=== PATIENT | female | born 1940 | race American Indian/Alaskan Native ===

== ENCOUNTER 2019-01-02 18:18 | Emergency (ER) | payer MEDICARE, OTHER ==
[2019-01-02 18:45] VITALS: BMI 32.2
[2019-01-02 18:50] VITALS: RESP 18
[2019-01-02 19:16] LABS: BASO # 0.01 K/mm3 (0.0-2.0); BASO % 0.2 % (0.0-3.0); EOS % 0.7 % (1.5-5.0); HEMOGLOBIN 14.2 g/dL (12.0-16.0); LYMPH # 1.6 (1.2-3.4); LYMPH % 37.9 % (22.0-35.0); MEAN CELL VOLUME 88.1 fl (80.0-105.0); MEAN CORPUSCULAR HGB CONC 32.9 g/dl (31.0-37.0); MEAN PLATELET VOLUME 10.3 fl (7.0-11.0); MONO # 0.5 (0.1-0.6); MONO % 12.4 % (1.0-6.0); RBC 4.89 10^6/uL (3.5-6.1); WHITE BLOOD COUNT 4.1 10^3/uL (4.5-11.0)
[2019-01-02 19:28] LABS: ALB/GLOB RATIO 1.1 (1.1-1.8); ALBUMIN 4.3 g/dL (3.0-4.8); ALT/SGPT 17 U/L (7-56); AST/SGOT 32 U/L (14-36); BLOOD UREA NITROGEN 19 mg/dL (7-21); CALCIUM 9.3 mg/dL (8.4-10.5); GFR NON-AFRICAN AMERICAN > 60
[2019-01-02 19:39] LABS: TROPONIN I < 0.01 ng/mL
[2019-01-02 19:45] LABS: FREE T4 1.02 ng/dL (0.78-2.19)
--- NOTE | 2019-01-02 20:40 | ED PDOC ---
Arrival/HPI - General Chief Complaint: Palpitations Historian: Patient - History of Present Illness Narrative History of Present Illness (Text): Patient is an 78 year old female with past medical history of hypertension and multiple thyroid nodules presenting with chief complaint of palpitations and elevated blood pressure. Palpitations began this morning and has been constant. Patient was seen by PMD last Tuesday at clinic when her metoprolol was switched to carvedilol. Patient denies any other complaint. Denies fevers, chills, chest pain, shortness of breath, abdominal pain, diarrhea, dysuria. Time/Duration: 24 hours Symptom Onset: Sudden Symptom Course: Unchanged Context: Home Past Medical History - Provider Review Nursing Documentation Reviewed: Yes - Infectious Disease Hx of Infectious Diseases: None - Tetanus Immunization Tetanus Immunization: Unknown - Reproductive Menopause: Yes - Cardiac Hx Hypertension: Yes - Pulmonary Hx Respiratory Disorders: No - Neurological Hx Neurological Disorder: No - HEENT Hx HEENT Disorder: Yes Hx Cataracts: Yes Hx Glaucoma: Yes - Renal Hx Renal Disorder: No - Endocrine/Metabolic Hx Endocrine Disorders: No - Hematological/Oncological Hx Blood Disorders: No - Integumentary Hx Dermatological Disorder: No - Musculoskeletal/Rheumatological Hx Musculoskeletal Disorders: No Hx Arthritis: Yes Hx Falls: No - Gastrointestinal Hx Gastrointestinal Disorders: No Hx Diverticulitis: Yes - Genitourinary/Gynecological Hx Genitourinary Disorders: No - Psychiatric Hx Psychophysiologic Disorder: No Hx Substance Use: No - Surgical History Hx Hysterectomy: Yes Hx Tonsillectomy: Yes - Anesthesia Hx Anesthesia: Yes Hx Anesthesia Reactions: No Hx Malignant Hyperthermia: No - Suicidal Assessment Feels Threatened In Home Enviroment: No Family/Social History - Physician Review Nursing Documentation Reviewed: Yes Family/Social History: No Known Family HX Smoking Status: Never Smoked Hx Alcohol Use: Yes (Socially) Hx Substance Use: No Hx Substance Use Treatment: No Allergies/Home Meds Allergies/Adverse Reactions: Allergies No Known Allergies Allergy (Verified 01/02/19 18:50) Home Medications: Home Meds Medication Instructions Recorded Confirmed Bimatoprost [Lumigan] 1 drop OU QPM 08/28/14 01/03/18 Brimonidine Tartrate/Timolol 1 drop OU BID 08/28/14 01/03/18 [Combigan Eye Drops] Metoprolol Succinate XL [Toprol XL] 200 mg PO QAM 08/28/14 01/03/18 Folic Acid 1 mg PO DAILY 07/19/16 01/03/18 Amlodipine Besylate/Benazepril 1 each PO DAILY 01/03/18 01/03/18 [Amlodipine-Benazepril 5-40 mg] Aspirin/Calcium Carbonate [Gagandeep 1 each PO DAILY 01/03/18 01/03/18 Women's Aspirin Tablet] Furosemide [Lasix] 40 mg PO DAILY 01/03/18 01/03/18 Potassium Chloride [K-Dur 20] 10 meq PO DAILY 01/03/18 01/03/18 Pravastatin Sodium [Pravachol] 20 mg PO DAILY 01/03/18 01/03/18 Review of Systems - Physician Review All systems were reviewed & negative as marked: Yes - Review of Systems Respiratory: Normal Cardiovascular: Palpitations. absent: Chest Pain Gastrointestinal: Normal Physical Exam Vital Signs Reviewed: Yes Vital Signs Temp Pulse Resp BP Pulse Ox 01/02/19 18:46 98.5 F 65 18 189/81 H 99 Temperature: Afebrile Blood Pressure: Hypertensive Pulse: Regular Respiratory Rate: Normal Appearance: Positive for: Well-Appearing, Comfortable Pain Distress: None Mental Status: Positive for: Alert and Oriented X 3 - Systems Exam Head: Present: Atraumatic, Normocephalic Pupils: Present: PERRL Extroacular Muscles: Present: EOMI Conjunctiva: Present: Normal Respiratory/Chest: Present: Clear to Auscultation. No: Respiratory Distress, Accessory Muscle Use Cardiovascular: Present: Regular Rate and Rhythm, Normal S1, S2. No: Tachycardic Abdomen: Present: Normal Bowel Sounds. No: Tenderness, Distention Lower Extremity: Present: Normal Inspection. No: Edema Neurological: Present: GCS=15, CN II-XII Intact, Speech Normal Skin: Present: Warm, Dry, Normal Color Psychiatric: Present: Alert, Oriented x 3, Normal Insight, Normal Concentration Medical Decision Making ED Course and Treatment: Impression: palpitations Differential Diagnosis included but are not limited to: ACS, thyroid disease, electrolyte abnormalities Plan: - CBC/CMP - EKG - CXR - Thyroid function tests - Reassess and disposition Prior Visits: Notes and results from previous visits were reviewed. Progress Notes: Hydralazine 10 mg IVP given with. Labs and imaging reviewed. Patient optimized for discharge and instructed to follow up with PMD within 3-5 days. - Lab Interpretations Lab Results: Troponin I < 0.01 ng/mL 01/02/19 18:45 NT-Pro-B Natriuret Pep 96.0 pg/mL (0-450) 01/02/19 18:45 Total Bilirubin 0.5 mg/dL (0.2-1.3) 01/02/19 18:45 AST 32 U/L (14-36) 01/02/19 18:45 ALT 17 U/L (7-56) 01/02/19 18:45 Alkaline Phosphatase 67 U/L (38-126) 01/02/19 18:45 Total Protein 8.1 g/dL (5.8-8.3) 01/02/19 18:45 Albumin 4.3 g/dL (3.0-4.8) 01/02/19 18:45 Globulin 3.9 gm/dL 01/02/19 18:45 Albumin/Globulin Ratio 1.1 (1.1-1.8) 01/02/19 18:45 - RAD Interpretation Radiology Orders: 01/02/19 18:57 CHEST PORTABLE [RAD] Stat - EKG Interpretation EKG Interpretation (Text): NSR @ 73 bpm Interpreted by ED Physician: Yes Type: 12 lead EKG Comparison: Similar to previous EKG Disposition/Present on Arrival - Present on Arrival Any Indicators Present on Arrival: No History of DVT/PE: No History of Uncontrolled Diabetes: No Urinary Catheter: No History of Decub. Ulcer: No History Surgical Site Infection Following: None - Disposition Have Diagnosis and Disposition been Completed?: Yes Diagnosis: Palpitations, Hypertension Disposition: HOME/ ROUTINE Disposition Time: 21:03 Patient Problems: Current Active Problems Problem Status Onset Hypertension Acute Palpitations Acute Condition: FAIR Discharge Instructions (ExitCare): High Blood Pressure (DC), Palpitations (DC) Print Language: SYRIAN Additional Instructions: Please hold your Carvedilol for ONE dose Please follow up with Dr. Sood this week Referrals: Ranjit Sood MD [Staff Provider] - Follow up with primary Forms: 3D F[employer] V[employer] II (Malay)
[2019-01-02 21:38] VITALS: O2SAT 98
[2019-01-02 21:40] VITALS: BP 153/89; PULSE 78; TEMP 98.2
--- NOTE | 2019-01-03 09:53 | CARD ---
APPROVED REPORT Date of service: 01/02/2019 EKG Measurement Heart [id number] <Conclusion> Normal sinus rhythm Possible Left atrial enlargement Left axis deviation Nonspecific intraventricular conduction delay Left ventricular hypertrophy Abnormal ECG
--- NOTE | 2019-01-03 10:14 | RAD ---
Date of service: 01/02/2019 HISTORY: palpitations COMPARISON: 01/09/2015 FINDINGS: LUNGS: No active pulmonary disease. PLEURA: No significant pleural effusion identified, no pneumothorax apparent. CARDIOVASCULAR: No atherosclerotic calcification present Normal. OSSEOUS STRUCTURES: No significant abnormalities. VISUALIZED UPPER ABDOMEN: Normal. OTHER FINDINGS: None. IMPRESSION: No active disease. No significant interval change compared to the prior examination(s).
== END 2019-01-02 21:41 | disposition home or self-care (01) ==
LOC: ED 18:18
DX: R00.2 Palpitations (principal); I10 Essential (primary) hypertension; E04.2 Nontoxic multinodular goiter
CPT/HCPCS: 71045; 80053; 83735; 83880; 84100; 84439; 84443; 84484; 85025; 93005; 96374; 99283; J0360

== ENCOUNTER 2019-01-16 06:19 | Outpatient (CLI) | payer MEDICARE, OTHER | END 2019-01-16 06:20 | disposition home or self-care (01) | LOC: CARDIO 06:19 | DX: I35.0 Nonrheumatic aortic (valve) stenosis (principal) ==